=== PATIENT | male | born 1955 | race African-American/Black ===

== ENCOUNTER 2017-12-07 12:32 | Inpatient (IN) | payer OTHER ==
[2017-12-07 13:11] VITALS: BMI 28.2
--- NOTE | 2017-12-07 16:38 | HP ---
COWS - Scale Resting Pulse: 1= [place] 81-100 Sweatin= Chills/Flushing Restless Observation: 1= Difficult to Sit Still Pupil Size: 0= Normal to Room Light Bone or Joint Aches: 2= Severe Diffuse Aches Runny Nose/ Eye Tearin= Runny Nose/Eyes GI Upset > 30mins: 2= Nausea/Diarrhea Tremor Observation: 2= Slight Tremor Visible Yawning Observation: 1= 1-2x During Session Anxiety or Irritability: 2=Irritable/Anxious Goose Flesh Skin: 0=Smooth Skin COWS Score: 14 CIWA Score - CIWA Score Nausea/Vomitin Muscle Tremors: 2 Anxiety: 2 Agitation: 2 Paroxysmal Sweats: 2 Orientation: 0-Oriented Tacttile Disturbances: 0-None Auditory Disturbances: 0-None Visual Disturbances: 0-None Headache: 2-Mild CIWA-Ar Total Score: 12 Admission ROS S - HPI Chief Complaint: HEROIN/ETOH WITHDRAWAL SYMPTOMS Allergies/Adverse Reactions: Allergies Allergy/AdvReac Type Severity Reaction Status Date / Time Penicillins Allergy Severe Rash Verified 12/07/17 16:01 History of Present Illness: PATIENT PRESENTS WITH ETOH/HEROIN WITHDRAWAL SYMPTOMS. PATIENT IS FIRST ADMISSION TO [facility]. ATTEMPTED DETOX IN [facility] 2 MONTHS AGO. PATIENT BEGAN SNIFFING HEROIN SINCE AGE 59. SNIFFS UP TO 40 BAGS DAILY. LAST DOSE WAS YESTERDAY. PATIENT BEGAN DRINKING AT AGE 59. DRINKS (4) 40 OUNCE BEERS DAILY. LAST DRINK WAS LAST NIGHT. DENIES HX OF SEIZURES AND OVERDOSE. PMH INCLUDES HTN, HLD, DM, HEP C (UNTREATED) AND RIGHT GREAT TOE AMPUTATION (08/2017). REPORTS COMPLIANCE WITH ALL MEDICATION. DENIES SI/HI AND SUICIDE ATTEMPTS. PATIENT GETS WOUND CARE TREATMENT EVERY SUNDAY AT [facility]. LAST DRESSING DONE LAST SUNDAY. Exam Limitations: No Limitations - Ebola screening Have you traveled outside of the country in the last 21 days: No Have you had contact with anyone from an Ebola affected area: No Have you been sick,other than usual withdrawal symptoms: No Do you have a fever: No - Review of Systems Constitutional: Chills, Night Sweats, Changes in sleep EENT: reports: Tearing, Nose Congestion Respiratory: reports: No Symptoms reported Cardiac: reports: No Symptoms Reported GI: reports: Diarrhea, Nausea, Poor Fluid Intake, Abdominal cramping : reports: Frequency Musculoskeletal: reports: Back Pain, Muscle Pain Integumentary: reports: Sweating Neuro: reports: Headache, Tremors Endocrine: reports: No Symptoms Reported Hematology: reports: No Symptoms Reported Psychiatric: reports: Orientated x3, Anxious, Depressed Patient History - Patient Medical History Hx Anemia: No Hx Asthma: No Hx Chronic Obstructive Pulmonary Disease (COPD): No Hx Cancer: No Hx Cardiac Disorders: No Hx Congestive Heart Failure: No Hx Hypertension: Yes Hx Hypercholesterolemia: Yes Hx Pacemaker: No HX Cerebrovascular Accident: No Hx Seizures: No Hx Dementia: No Hx Diabetes: Yes (Type II) Hx Gastrointestinal Disorders: No Hx Liver Disease: No Hx Genitourinary Disorders: No Hx Sexually Transmitted Disorders: No Hx Renal Disease (ESRD): No Hx Thyroid Disease: No Hx Human Immunodeficiency Virus (HIV): No Hx Hepatitis C: Yes (UNTREATED) Hx Depression: No Hx Suicide Attempt: No Hx Bipolar Disorder: No Hx Schizophrenia: No - Patient Surgical History Past Surgical History: Yes Hx Cholecystectomy: Yes (30 yrs ago.) Hx Orthopedic Surgery: Yes (R big toe removed in [facility] 09/10) Anesthesia Reaction: No - PPD History Previous Implant?: Yes Documented Results: Negative w/o proof Implanted On Prior [facility] Admission?: No PPD to be Administered?: Yes - Smoking Cessation Smoking history: Current every day smoker Have you smoked in the past 12 months: Yes Aproximately how many cigarettes per day: 20 Hx Chewing Tobacco Use: No Initiated information on smoking cessation: Yes 'Breaking Loose' booklet given: 12/07/17 - Substance & Tx. History Hx Alcohol Use: Yes Hx Substance Use: Yes Substance Use Type: Alcohol, Heroin Hx Substance Use Treatment: Yes - Substances Abused Heroin Route: Inhalation Frequency: Daily Amount used: 40 bags Age of first use: 20 Date of Last Use: 12/06/17 Alcohol Route: Oral Frequency: Daily Amount used: 6 40oz beer Age of first use: 20 Date of Last Use: 12/07/17 Family Disease History - Family Disease History Family History: Denies Admission Physical Exam BHS - Vital Signs Vital Signs: Vital Signs - 24 hr 12/07/17 13:07 Temperature 97.4 F L Pulse Rate 88 Respiratory 18 Rate Blood Pressure 133/89 - Physical General Appearance: Yes: Appropriately Dressed, Tremorous, Sweating, Anxious HEENTM: Yes: EOMI, Hearing grossly Normal, Normocephalic, Normal Voice, ANNALISA, Pharynx Normal, Nasal Congestion Respiratory: Yes: Chest Non-Tender, Lungs Clear, Normal Breath Sounds, No Respiratory Distress, No Accessory Muscle Use Neck: Yes: No masses,lesions,Nodules, Supple Breast: Yes: Breast Exam Deferred Cardiology: Yes: Regular Rhythm, Regular Rate, S1, S2 Abdominal: Yes: Normal Bowel Sounds, Non Tender, Soft Genitourinary: Yes: Frequency Back: Yes: Normal Inspection, Muscle Spasm Musculoskeletal: Yes: Gait Steady, Back pain Extremities: Yes: Non-Tender, Tremors, Swelling, Amputation (RIGHTGREAT TOE AMPUTATION. HAS OPEN TOE SHOE) Neurological: Yes: associate drafter II-XII NML intact, Fully Oriented, Alert, Motor Strength 5/5, Normal Response, Depressed Affect Integumentary: Yes: Normal Color, Warm, Moist, Other (BLE EDEMA) Lymphatic: Yes: Within Normal Limits - Diagnostic (1) Alcohol dependence with uncomplicated withdrawal Current Visit: Yes Status: Acute (2) Opioid dependence with withdrawal Current Visit: Yes Status: Acute (3) Diabetes 1.5, managed as type 2 Current Visit: Yes Status: Chronic (4) HTN (hypertension) Current Visit: Yes Status: Chronic Qualifiers: Hypertension type: essential hypertension Qualified Code(s): I10 - Essential (primary) hypertension (5) HLD (hyperlipidemia) Current Visit: Yes Status: Chronic Qualifiers: Hyperlipidemia type: unspecified Qualified Code(s): E78.5 - Hyperlipidemia , unspecified (6) Amputated toe of right foot Current Visit: Yes Status: Acute (7) Depressed affect Current Visit: Yes Status: Suspected Cleared for Admission [facility] Level of Care: Medically Managed Detox Regimen/Protocol: Methadone/Librium [facility] Breath Alcohol Content Breath Alcohol Content: 0.095 Urine Drug Screen - Results Drug Screen Negative: No Urine Drug Screen Results: THC-Marijuana, OPI-Opiates
[2017-12-07] MEDS ORDERED: IBUPROFEN 400 MG TABLET (FP) PO PRN (16:48)
[2017-12-07] MEDS ORDERED: MENTHOL/PHENOL 1 EACH UD MM PRN (16:48)
[2017-12-07] MEDS ORDERED: LOPERAMIDE HCL 2 MG CAPSULE PO PRN (16:48)
[2017-12-07] MEDS ORDERED: P-EPHED 60MG/TRIPROLIDI 2.5MG TABLET PO PRN (16:48)
[2017-12-07] MEDS ORDERED: MAG HYDROX/AL HYDROX/SIMETH 30 ML UNIT-DOSE CUP PO PRN (16:48)
[2017-12-07] MEDS ORDERED: ACETAMINOPHEN 325 MG TABLET (FP) PO PRN (16:48)
[2017-12-07] MEDS ORDERED: MAGNESIUM CITRATE 300 ML BOTTLE PO PRN (16:48)
[2017-12-07] MEDS ORDERED: MAGNESIUM HYDROX 2400MG/30ML ORAL SUSPENSION 30 ML CUP PO PRN (16:48)
[2017-12-07] MEDS ORDERED: guaiFENesin/D-METHORPHAN HB 10 ML UNIT-DOSE CUPS PO PRN (16:48)
[2017-12-07] MEDS ORDERED: chlordiazePOXIDE HCL 25 MG CAPSULE PO PRN (16:53)
[2017-12-07] MEDS ORDERED: METHADONE HCL 10 MG TABLET (FOR DETOX USE ONLY) PO ONE ×2 (18:30→23:00)
[2017-12-07] MEDS: NICOTINE POLACRILEX 2 MG GUM BUC PRN (19:00)
[2017-12-07] MEDS: INSULIN (LEVEMIR) 100 UNITS/ML UNITS SQ SCH (21:53)
[2017-12-07] MEDS: THIAMINE HCL 100 MG TABLET (FP) PO SCH (22:03)
[2017-12-07] MEDS: chlordiazePOXIDE HCL 25 MG CAPSULE PO SCH (22:04)
[2017-12-07] MEDS: GABAPENTIN 300 MG CAPSULE (FP) PO SCH (22:04)
[2017-12-07] MEDS: ATORVASTATIN CA 10 MG TABLET (FP) PO SCH (22:04)
[2017-12-07] MEDS: hydrOXYzine PAMOATE 50 MG CAPSULE (FP) PO PRN (22:05)
[2017-12-08] MEDS: chlordiazePOXIDE HCL 25 MG CAPSULE PO SCH ×4 (05:12→22:16)
[2017-12-08] MEDS: GABAPENTIN 300 MG CAPSULE (FP) PO SCH ×3 (05:12→22:16)
[2017-12-08] MEDS: glipiZIDE-XL 10 MG TAB.ER.24 (FP) PO SCH (07:06)
[2017-12-08] MEDS: metFORMIN HCL 500 MG TABLET (FP) PO SCH ×2 (07:06→17:42)
[2017-12-08] MEDS: NICOTINE POLACRILEX 2 MG GUM BUC PRN ×2 (07:50→18:30)
--- NOTE | 2017-12-08 09:42 | PN ---
S Progress Note (SOAP) Subjective: doing well with detox meds , denies complaints , mild w/d symptoms- fatigue , requesting abx for right foot amputation x 3 mo ago , has weekly f/up for wound scare , next scheduled visit sunday - meds brought in indicate Bactrim bid , ammonium lactate Objective: 12/08/17 09:41 ambulating , antalgic gait , AAO x 3 Assessment: 12/08/17 09:41 continue current meds for opioid w/d , add Bactrim bid , ammonium lactate and fenofibrate- home meds \high risk due to underlying conditions 12/08/17 09:42 12/08/17 09:43 Plan: continue curren meds , add Bactrim , ammonium lactate, fenofibrate
[2017-12-08] MEDS ORDERED: METHADONE HCL 10 MG TABLET (FOR DETOX USE ONLY) PO SCH (10:00)
[2017-12-08] MEDS: HYDROCHLOROTHIAZIDE 25 MG TABLET (FP) PO SCH (10:15)
[2017-12-08] MEDS: PRENATAL VITAMINS W/ FOLIC ACID TABLET (FP) PO SCH (10:15)
[2017-12-08] MEDS: ASPIRIN 81 MG CHEWABLE TABLETS PO SCH (10:15)
[2017-12-08] MEDS: amLODIPine BESYLATE 5 MG TABLET (FP) PO SCH (10:16)
[2017-12-08] MEDS: NICOTINE 21 MG/24 HOURS TOPICAL PATCH TD SCH (10:16)
[2017-12-08] MEDS: LISINOPRIL 10 MG TABLET (FP) PO SCH (10:16)
[2017-12-08] MEDS: TAMSULOSIN HCL 0.4 MG CAP.ER.24H (FP) PO SCH (10:16)
[2017-12-08] MEDS: SULFAMETHOXAZOLE/TRIMETHOPRIM 800MG/160MG D.S. TABLET PO SCH ×2 (10:17→22:16)
[2017-12-08 11:20] LABS: ALBUMIN 2.9 g/dl (3.4-5.0); ALK PHOS 150 U/L (45-117); ANION GAP 9 MMOL/L (8-16); BILIRUBIN,TOTAL 0.7 mg/dL (0.2-1.0); BLOOD UREA NITROGEN 11 mg/dL (7-18); CALCIUM 8.9 mg/dL (8.5-10.1); CHLORIDE 102 mmol/L (98-107); CO2 29 mmol/L (21-32); CREATININE 0.5 mg/dL (0.55-1.3); GLUCOSE,RANDOM 109 mg/dL (74-106); POTASSIUM 3.8 mmol/L (3.5-5.1); SGOT/AST 47 U/L (15-37); SGPT/ALT 41 U/L (13-61); SODIUM 140 mmol/L (136-145); TOT PROT 7.1 g/dl (6.4-8.2)
[2017-12-08] MEDS: AMMONIUM LACTATE TP SCH (11:26)
[2017-12-08 11:35] LABS: HEMATOCRIT 37.6 % (35.4-49); HEMOGLOBIN 12.3 GM/dL (11.7-16.9); MCH 29.6 pg (25.7-33.7); MCHC 32.6 g/dl (32.0-35.9); MEAN CELL VOLUME 90.7 fl (80-96); MEAN PLT VOLUME 8.8 fl (7.5-11.1); PLATELET COUNT 134 K/MM3 (134-434); RBC 4.14 M/mm3 (4.00-5.60); RDW 18.2 % (11.9-15.9); WHITE BLOOD COUNT 3.4 K/mm3 (4.0-10.0)
[2017-12-08 13:00] LABS: URINE APPEARANCE CLEAR; URINE BILIRUBIN NEGATIVE (<2.0 mg/dL); URINE COLOR LTYELLOW; URINE GLUCOSE (UA) NEGATIVE (NEGATIVE); URINE KETONE NEGATIVE (NEGATIVE); URINE LEUK ESTERASE NEGATIVE (NEGATIVE); URINE NITRITE NEGATIVE (NEGATIVE); URINE PROTEIN NEGATIVE (NEGATIVE); URINE UROBILINOGEN NEGATIVE mg/dL (0.2-1.0)
--- NOTE | 2017-12-08 13:04 | CONSULT ---
[facility] Psychiatric Consult - Data Date of interview: 12/08/17 Admission source: [facility] Identifying data: Mr Evans is approached at bedside for the psychiatric evaluation.Patient refused. " I ddon't have psychiatric problems.I don't have to talk to a psychiatrist." Nursing staff is made aware.
[2017-12-08] MEDS: FENOFIBRATE 54 MG PO SCH (17:42)
[2017-12-08] MEDS: INSULIN (LEVEMIR) 100 UNITS/ML UNITS SQ SCH (21:54)
[2017-12-08] MEDS: ATORVASTATIN CA 10 MG TABLET (FP) PO SCH (22:16)
[2017-12-08] MEDS: THIAMINE HCL 100 MG TABLET (FP) PO SCH (22:16)
[2017-12-08] MEDS: MELATONIN 5 MG TABLETS PO PRN (22:18)
[2017-12-09] MEDS: GABAPENTIN 300 MG CAPSULE (FP) PO SCH ×3 (05:06→22:17)
[2017-12-09] MEDS: chlordiazePOXIDE HCL 25 MG CAPSULE PO SCH ×3 (05:06→17:08)
[2017-12-09] MEDS: glipiZIDE-XL 10 MG TAB.ER.24 (FP) PO SCH (06:24)
[2017-12-09] MEDS: metFORMIN HCL 500 MG TABLET (FP) PO SCH ×2 (06:24→17:08)
[2017-12-09] MEDS: HYDROCHLOROTHIAZIDE 25 MG TABLET (FP) PO SCH (10:19)
[2017-12-09] MEDS: TAMSULOSIN HCL 0.4 MG CAP.ER.24H (FP) PO SCH (10:19)
[2017-12-09] MEDS: SULFAMETHOXAZOLE/TRIMETHOPRIM 800MG/160MG D.S. TABLET PO SCH ×2 (10:19→22:17)
[2017-12-09] MEDS: AMMONIUM LACTATE TP SCH (10:19)
[2017-12-09] MEDS: METHADONE HCL 5 MG TABLET (FOR DETOX USE ONLY) PO SCH (10:19)
[2017-12-09] MEDS: ASPIRIN 81 MG CHEWABLE TABLETS PO SCH (10:19)
[2017-12-09] MEDS: amLODIPine BESYLATE 5 MG TABLET (FP) PO SCH (10:19)
[2017-12-09] MEDS: LISINOPRIL 10 MG TABLET (FP) PO SCH (10:19)
[2017-12-09] MEDS: PRENATAL VITAMINS W/ FOLIC ACID TABLET (FP) PO SCH (10:20)
[2017-12-09] MEDS: NICOTINE 21 MG/24 HOURS TOPICAL PATCH TD SCH (10:20)
[2017-12-09] MEDS: NICOTINE POLACRILEX 2 MG GUM BUC PRN ×2 (12:44→18:32)
--- NOTE | 2017-12-09 14:16 | PN ---
[facility] CIWA - CIWA Score Nausea/Vomitin Muscle Tremors: 3 Anxiety: 3 Agitation: 3 Paroxysmal Sweats: 2 Orientation: 0-Oriented Tacttile Disturbances: 0-None Auditory Disturbances: 0-None Visual Disturbances: 0-None Headache: 1-Very Mild CIWA-Ar Total Score: 15 [facility] COWS - Scale Resting Pulse: 0= [place] 80 or Below Sweatin= Chills/Flushing Restless Observation: 1= Difficult to Sit Still Pupil Size: 1= Pupils >than Normal Bone or Joint Aches: 2= Severe Diffuse Aches Runny Nose/ Eye Tearin= Runny Nose/Eyes GI Upset > 30mins: 2= Nausea/Diarrhea Tremor Observation of Outstretched Hands: 2= Slight Tremor Visible Yawning Observation: 1= 1-2x During Session Anxiety or Irritability: 2=Irritable/Anxious Goose Flesh Skin: 0=Smooth Skin COWS Score: 14 S Progress Note (SOAP) Subjective: Runny nose, tremor, sweating Objective: 12/09/17 14:12 Last Vital Signs Temp Pulse Resp BP Pulse Ox 98.0 F 73 20 122/74 12/09/17 13:45 12/09/17 13:45 12/09/17 13:45 12/09/17 13:45 Laboratory Tests 12/07/17 12/07/17 12/08/17 16:21 21:51 05:11 WBC RBC Hgb Hct MCV MCH MCHC RDW Plt Count MPV Sodium Potassium Chloride Carbon Dioxide Anion Gap BUN Creatinine Creat Clearance w eGFR POC Glucometer 220 166 107 Random Glucose Calcium Total Bilirubin AST ALT Alkaline Phosphatase Total Protein Albumin Urine Color Urine Appearance Urine pH Ur Specific [place] Urine Protein Urine Glucose (UA) Urine Ketones Urine Blood Urine Nitrite Urine Bilirubin Urine Urobilinogen Ur Leukocyte Esterase RPR Titer 12/08/17 12/08/17 12/08/17 07:50 07:50 07:50 WBC 3.4 L RBC 4.14 Hgb 12.3 Hct 37.6 MCV 90.7 MCH 29.6 MCHC 32.6 RDW 18.2 H Plt Count 134 MPV 8.8 Sodium 140 Potassium 3.8 Chloride 102 Carbon Dioxide 29 Anion Gap 9 BUN 11 Creatinine 0.5 L Creat Clearance w eGFR > 60 POC Glucometer Random Glucose 109 H Calcium 8.9 Total Bilirubin 0.7 AST 47 H ALT 41 Alkaline Phosphatase 150 H Total Protein 7.1 Albumin 2.9 L Urine Color Urine Appearance Urine pH Ur Specific [place] Urine Protein Urine Glucose (UA) Urine Ketones Urine Blood Urine Nitrite Urine Bilirubin Urine Urobilinogen Ur Leukocyte Esterase RPR Titer Nonreactive 12/08/17 12/08/17 12/09/17 09:07 21:04 05:06 WBC RBC Hgb Hct MCV MCH MCHC RDW Plt Count MPV Sodium Potassium Chloride Carbon Dioxide Anion Gap BUN Creatinine Creat Clearance w eGFR POC Glucometer 247 123 Random Glucose Calcium Total Bilirubin AST ALT Alkaline Phosphatase Total Protein Albumin Urine Color Ltyellow Urine Appearance Clear Urine pH 7.0 Ur Specific [place] 1.006 Urine Protein Negative Urine Glucose (UA) Negative Urine Ketones Negative Urine Blood Negative Urine Nitrite Negative Urine Bilirubin Negative Urine Urobilinogen Negative Ur Leukocyte Esterase Negative RPR Titer Labs reviewed Assessment: 12/09/17 14:15 Withdrawal symptoms Plan: Continue detox
[2017-12-09] MEDS: hydrOXYzine PAMOATE 50 MG CAPSULE (FP) PO PRN (18:31)
[2017-12-09] MEDS: FENOFIBRATE 54 MG PO SCH (18:31)
[2017-12-09] MEDS: AMMONIUM LACTATE 12% LOTION 225 GM BOTTLE TP SCH (22:17)
[2017-12-09] MEDS: ATORVASTATIN CA 10 MG TABLET (FP) PO SCH (22:17)
[2017-12-09] MEDS: chlordiazePOXIDE 5 MG CAPSULE PO SCH (22:17)
[2017-12-09] MEDS: THIAMINE HCL 100 MG TABLET (FP) PO SCH (22:17)
[2017-12-09] MEDS: MELATONIN 5 MG TABLETS PO PRN (22:19)
--- NOTE | 2017-12-09 22:35 | EKG ---
Test Reason : Blood Pressure : / mmHG Vent. Rate : 069 BPM Atrial Rate : 069 BPM P-R Int : 172 ms QRS Dur : 076 ms QT Int : 404 ms P-R-T Axes : 069 028 052 degrees QTc Int : 432 ms NORMAL SINUS RHYTHM NORMAL ECG NO PREVIOUS ECGS AVAILABLE Confirmed by MADDIE FARIA MD ([id number]) on 12/09/2017 10:35:11 PM Referred By: Confirmed By:MADDIE FARIA MD
[2017-12-09] MEDS: INSULIN (LEVEMIR) 100 UNITS/ML UNITS SQ SCH (22:42)
[2017-12-10] MEDS: chlordiazePOXIDE 5 MG CAPSULE PO SCH ×3 (05:31→16:52)
[2017-12-10] MEDS: metFORMIN HCL 500 MG TABLET (FP) PO SCH ×2 (07:03→16:57)
[2017-12-10] MEDS: GABAPENTIN 300 MG CAPSULE (FP) PO SCH ×3 (07:03→22:08)
[2017-12-10] MEDS: glipiZIDE-XL 10 MG TAB.ER.24 (FP) PO SCH (07:05)
[2017-12-10] MEDS: ASPIRIN 81 MG CHEWABLE TABLETS PO SCH (10:24)
[2017-12-10] MEDS: PRENATAL VITAMINS W/ FOLIC ACID TABLET (FP) PO SCH (10:24)
[2017-12-10] MEDS: HYDROCHLOROTHIAZIDE 25 MG TABLET (FP) PO SCH (10:25)
[2017-12-10] MEDS: SULFAMETHOXAZOLE/TRIMETHOPRIM 800MG/160MG D.S. TABLET PO SCH ×2 (10:25→22:08)
[2017-12-10] MEDS: METHADONE HCL 5 MG TABLET (FOR DETOX USE ONLY) PO SCH (10:25)
[2017-12-10] MEDS: amLODIPine BESYLATE 5 MG TABLET (FP) PO SCH (10:25)
[2017-12-10] MEDS: NICOTINE 21 MG/24 HOURS TOPICAL PATCH TD SCH (10:25)
[2017-12-10] MEDS: TAMSULOSIN HCL 0.4 MG CAP.ER.24H (FP) PO SCH (10:25)
[2017-12-10] MEDS: AMMONIUM LACTATE 12% LOTION 225 GM BOTTLE TP SCH (10:27)
[2017-12-10] MEDS: LISINOPRIL 10 MG TABLET (FP) PO SCH (10:47)
--- NOTE | 2017-12-10 16:32 | PN ---
S CIWA - CIWA Score Nausea/Vomitin Muscle Tremors: 2 Anxiety: 4-Mod. Anxious/Guarded Agitation: 3 Paroxysmal Sweats: 2 Orientation: 0-Oriented Tacttile Disturbances: 0-None Auditory Disturbances: 0-None Visual Disturbances: 0-None Headache: 0-None Present CIWA-Ar Total Score: 13 S COWS - Scale Resting Pulse: 1= [place] 81-100 Sweatin=Flushed/Facial Moisture Restless Observation: 1= Difficult to Sit Still Pupil Size: 0= Normal to Room Light Bone or Joint Aches: 1= Mild Discomfort Runny Nose/ Eye Tearin= Nasal Congestion GI Upset > 30mins: 2= Nausea/Diarrhea Tremor Observation of Outstretched Hands: 0= None Yawning Observation: 0= None Anxiety or Irritability: 0= None Goose Flesh Skin: 0=Smooth Skin COWS Score: 8 [facility] Progress Note (SOAP) Subjective: Requesting an early discharge for tomorrow to go for his foot wound care sleep disturbance Objective: 12/10/17 16:36 A & O x 3 walking on unit Vital Signs Temperature 98.6 F 12/10/17 13:19 Pulse Rate 71 12/10/17 13:19 Respiratory Rate 18 12/10/17 13:19 Blood Pressure 104/71 12/10/17 13:19 O2 Sat by Pulse Oximetry (%) Assessment: 12/10/17 16:37 withdrawal sx Plan: continue detox For d/c in a.m
[2017-12-10] MEDS: FENOFIBRATE 54 MG PO SCH (16:57)
[2017-12-10] MEDS: ATORVASTATIN CA 10 MG TABLET (FP) PO SCH (22:08)
[2017-12-10] MEDS: THIAMINE HCL 100 MG TABLET (FP) PO SCH (22:08)
[2017-12-10] MEDS: INSULIN (LEVEMIR) 100 UNITS/ML UNITS SQ SCH (22:08)
[2017-12-10] MEDS: hydrOXYzine PAMOATE 50 MG CAPSULE (FP) PO PRN (22:09)
[2017-12-10] MEDS: chlordiazePOXIDE HCL 10 MG CAPSULE PO SCH (22:20)
[2017-12-11] MEDS: MELATONIN 5 MG TABLETS PO PRN (00:18)
[2017-12-11] MEDS: GABAPENTIN 300 MG CAPSULE (FP) PO SCH (05:30)
[2017-12-11] MEDS: chlordiazePOXIDE HCL 10 MG CAPSULE PO SCH (05:30)
[2017-12-11] MEDS ORDERED: METHADONE HCL 10 MG TABLET (FOR DETOX USE ONLY) PO SCH ×2 (06:00→10:00)
[2017-12-11 06:28] VITALS: BP 124/69; PULSE 55; TEMP 97.9
[2017-12-11] MEDS: glipiZIDE-XL 10 MG TAB.ER.24 (FP) PO SCH (06:28)
[2017-12-11] MEDS: metFORMIN HCL 500 MG TABLET (FP) PO SCH (06:28)
[2017-12-11] MEDS ORDERED: amLODIPine BESYLATE 2.5 MG TABLET (FP) PO SCH (10:00)
[2017-12-12] MEDS ORDERED: METHADONE HCL 5 MG TABLET (FOR DETOX USE ONLY) PO SCH ×2 (06:00)
== END 2017-12-11 06:20 | disposition home or self-care (01) | DRG 773 ==
LOC: YASAS 12:32 → Y3N 17:20
PROC: HZ2ZZZZ Detoxification Services for Substance Abuse Treatment (ICD-10-PCS; principal; 2017-12-07)
DX: F11.23 Opioid dependence with withdrawal (principal); F10.230 Alcohol dependence with withdrawal, uncomplicated; B18.2 Chronic viral hepatitis C; E78.5 Hyperlipidemia, unspecified; E11.65 Type 2 diabetes mellitus with hyperglycemia; Z79.84 Long term (current) use of oral hypoglycemic drugs; R45.89 Other symptoms and signs involving emotional state; Z89.411 Acquired absence of right great toe
CPT/HCPCS: 36415; 80053; 81003; 82962; 85027; 86593; 93005; 93010